=== PATIENT | male | born 1990 | race African-American/Black ===

== ENCOUNTER 2025-03-18 12:25 | Emergency (ER) | payer MEDICAID ==
[~2025-03-18] VITALS: Ht 182.9 cm; Wt 81.6 kg
[2025-03-18 12:36] VITALS: BP 117/82; TEMP 98.3
[2025-03-18] MEDS ORDERED: MUPI22OI2 TP (13:29)
[2025-03-18] MEDS ORDERED: DOXY100C2 PO (13:29)
[2025-03-18] MEDS ORDERED: CEFTRIAXONE 1 G VIAL ONE (13:31)
[2025-03-18] MEDS ORDERED: LIDOCAINE 1% INJ 50 ML MDV IJ ONE (13:31)
[2025-03-18] MEDS: CEFTRIAXONE 1 G VIAL IM ONE (13:35)
[2025-03-18 14:00] VITALS: O2SAT 98
[2025-03-19 13:50] LABS: HIV-1 p24 ANTIGEN NON REACTIVE (NONREACTIVE); HIV-1/2 ANTIBODY NON REACTIVE (NONREACTIVE)
[2025-03-20 05:09] LABS: RAPID PLASMA REAGIN QUAL. Non Reactive (Non Reactive)
[2025-03-21 02:12] LABS: CHLAMYDIA TRACHOMATIS NAA Negative (Negative); NEISSERIA GONORRHOEAE NAA Negative (Negative)
== END 2025-03-18 14:01 | disposition home or self-care (01) ==
LOC: ER 12:32
DX: L73.9 Follicular disorder, unspecified (principal)
CPT/HCPCS: 99283; 96372; 87806; 87491; 87591; J3490; J0696; 36415; 86592; 86593